=== PATIENT | male | born 1960 | race Caucasian/White ===

== ENCOUNTER 2023-12-25 07:11 | Outpatient (CLI) | payer BC, SELFPAY ==
--- NOTE | 2023-12-25 08:30 | W.ANESCHARGE ---
Anesthesia Charges Start Date/Time Anesthesia Start Date: 12/25/23 Anesthesia Start Time: 07:48 Stop Date/Time Anesthesia Stop Date: 12/25/23 Anesthesia Stop Time: 08:25
--- NOTE | 2023-12-25 09:17 | W.ANESCHARGE ---
Anesthesia Charges Start Date/Time Anesthesia Start Date: 12/25/23 Anesthesia Start Time: 07:48 Stop Date/Time Anesthesia Stop Date: 12/25/23 Anesthesia Stop Time: 08:25
== END 2023-12-25 07:12 | disposition home or self-care (01) ==
PROVIDERS: PCP Family Medicine; Visit Provider Internal Medicine Gastroenterology
DX: Z12.11 Encounter for screening for malignant neoplasm of colon (principal); K63.5 Polyp of colon; K62.1 Rectal polyp; Z86.010 Personal history of colon polyps
CPT/HCPCS: 00811; 45385; 88305; J2371; J2704

== ENCOUNTER 2024-07-22 13:45 | Outpatient (RCR) | payer BC, SELFPAY | END 2024-09-05 15:37 | disposition home or self-care (01) | PROVIDERS: PCP Family Medicine; Visit Provider Family Medicine | DX: Z91.89 Other specified personal risk factors, not elsewhere classified (principal); R26.81 Unsteadiness on feet; R29.6 Repeated falls; Z51.89 Encounter for other specified aftercare | CPT/HCPCS: 97110; 97112; 97116; 97162; 97165 ==